=== PATIENT | female | born 1990 | race Caucasian/White ===

== ENCOUNTER 2019-05-30 06:59 | Day surgery (SDC) | payer SELFPAY ==
[2019-05-18 09:03] VITALS: BMI 19.3
--- NOTE | 2019-05-20 09:25 | HP_ITS ---
Intake Vital Signs 05/18/19 Height 5 ft 5 in 05/18/19 Weight: 116 lb 2 oz 05/18/19 Body Mass Index (BMI) 19.3 05/18/19 Blood Pressure 104/66 05/18/19 Blood Pressure Location Rt brachial 05/18/19 Respiratory Rate 16 05/18/19 Pulse Rate 78 05/18/19 Pulse Ox 99 Intake Visit Reasons: ABD PAIN, Z86.010, CHANGE IN BM Chief Complaint: LLQ pain, severe constipation Dogger Required: No Is patient in pain?: Yes (low abd/ LLQ ) Pain scale (1-10): 2 Allergies naproxen [From Aleve] Allergy (Severe, Verified 05/18/19 09:04) throat swelling Medications aspirin 81 mg tablet,delayed release 81 mg PO DAILY 05/18/19 [History Confirmed 05/18/19] ginseng 250 mg capsule 250 mg PO DAILY 05/18/19 [History Confirmed 05/18/19] omega-3 fatty acids 1,000 mg capsule 1,000 mg PO BID cap 05/18/19 [History Confirmed 05/18/19] turmeric 400 mg capsule mg PO PRN cap 05/18/19 [History Confirmed 05/18/19] vitamin E (dl, acetate) 1,000 unit capsule 1,000 unit PO DAILY 05/18/19 [History Confirmed 05/18/19] Is last menstrual period known: No Post menopausal: No Patient : No PFSH Medical History Constipation (Acute) IBS (irritable colon syndrome) (Acute) Personal history of colonic polyps (Acute) Surgical History History of colonoscopy (Acute ~2006) Family History Father Osteoarthritis Hyperlipidemia Social History (Updated 05/20/19 @ 09:25 by Harman Feng MD) Smoking Status: Never smoker alcohol intake: never HPI HPI HPI: LEONOR GUTIERREZ, is a 29 F who presents to the office today for HPI HPI Surgical H&P: Yes HPI: LEONOR GUTIERREZ, is a 29 F who presents to the office today for evaluation for endoscopy. Patient has been experiencing a lot of epigastric abdominal pain and last week and was unable to eat much of anything secondary to this. She has had rectal bleeding over the last 3 to 4 months. Her last colonoscopy was 12 years ago in [place]. At that time she was noted to have a polyp but has not had any further colonoscopies. She has a grandfather who has colon cancer. ROS General General: Yes fatigue; no weight change, appetite, colon cancer, breast cancer or weakness HEENT HEENT: Yes difficulty swallowing; no eye injury, eye surgery, swollen glands or hoarseness Endo Endocrine: No thyroid disease, diabetes mellitus, thyroid cancer, Hair loss, heat intolerance or cold intolerance Cardio Cardiovascular: No murmur, pacemaker, heart disease, atrial fibrillation, high blood pressure, heart attack, heart stent, palpitations, shortness of breat with exertion or chest pain Resp Respiratory: No shortness of breath, No sleep apnea, No cough, No COPD, No asthma, No emphysema, No wheezing Gastro Gastrointestinal: Yes abdominal pain, Yes nausea or vomiting, Yes diarrhea, Yes constipation, Yes blood in stool, No acid reflux, No hemorrhoids, No ulcers, No gallbladder problem, No black,tarry stools Duy Hematologic: Yes blood thinners, No blood disorders, No bleeding, No anemia, No blood clots Neuro Neurologic: No weakness Exam Const General: no acute distress, well developed, well hydrated Orientation: oriented to person, oriented to place, oriented to time [facility] Head: normocephalic, atraumatic Ears: external ears normal Mouth: moist mucous membranes Eyes Sclera: sclerae normal Pupils: normal by confrontation Neck Neck: no lymphadenopathy noted Neck mass: No Thyroid: thyroid normal, symmetrical Chest Chest palpation & inspection: normal inspection of the chest Resp Effort & Inspection: normal respiratory effort Auscultation: clear to auscultation bilaterally Percussion: percussion normal Cardio Rate: regular rate Rhythm: regular rhythm Heart Sounds: no murmurs GI Palpation: soft, no hepatosplenomegaly, no masses, nontender Rectal Exam: other Other: Rectal exam deferred. Extrem General: normal to inspection, no clubbing, cyanosis or edema Assessment & Plan Problems 1. Epigastric abdominal pain R10.13 2. Rectal hemorrhage K62.5 Plan I have discussed the above with the patient. I have offered the patient colonoscopy as well as an esophagogastroduodenoscopy. For evaluation. I have explained the risks/benefits of the procedure and described the procedure. I have discussed the risks with the patient, including but not limited to: infection, bleeding, perforation of the GI tract requiring emergency surgery, inability to complete the procedure, injury to any internal organs, complications of anesthesia, etc. - the patient understands and agrees to proceed. I have answered all the patient's questions to the patient's satisfaction and the patient has no further questions. The patient has been given instructions for the colon cleansing preparation. We will more likely need to do random colon biopsies on her as well. Orders Orders: Colonoscopy 05/18/19 EGD 05/18/19 R10.9 Coding Level of Care Code Off vis,new,level 3 Diagnoses Epigastric abdominal pain R10.13 Rectal hemorrhage K62.5 05/20/19 0925 <Electronically signed by Harman menard MD> Date _ Harman Feng MD I have re-examined the patient. There are no clinical changes since date of exam.
[2019-05-30] VITALS (8 sets, daily range): BP systolic 88–124; BP diastolic 62–92; PULSE 58–100; RESP 16–18; TEMP 36.4–36.9; O2SAT 96–100; BMI 19.2
--- NOTE | 2019-05-30 | IMM_PTH ---
PATIENT: LEONOR GUTIERREZ LOC: EN U#:[id number] AGE/SX: 29/F ROOM: RE05/30/[address]: Dr. Harman Feng MD : 1990 BED: DIS: 05/30/2019 SPEC #: [id number] RECD: 06/01/19 07:19 STATUS: YAMILE CHANO #: [id number] MUSA: 05/30/19 00:[address]: Harman Feng DEPT: IMMUNOHISTOCHEMISTRY RECD BY: Tania Ybarra ENTERED: 06/01/19 07:20 SP TYPE: IMMUNO OTHR DR: No Primary Care Phys Tissues: B - Stomach, NOS Procedures: H Pylori (initial) PHYSICIAN & INSTITUTION [place] [address] SPECIMEN INFORMATION: Tissue Source: B - Antrum biopsy Clinical Info: Epigastric abdomen pain, rectal hemorrhage Specimen Number: [id number] CPT code: 75747 METHODOLOGY: Deparaffinized sections of prefer/formalin-fixed tissue or PAP/DQ stained slides are incubated with monoclonal/polyclonal antibodies/oligonucleotide probes. Localization is made via biotin free immunoperoxidase method. Appropriate controls are performed and reacted as expected. Results on target cell population are indicated in the following table: RESULTS: ANTIBODY / CLONE RESULT Block B H Pylori (polyclonal) negative These tests were developed and their performance characteristics determined by [facility]. They may not have been cleared or approved by the U.[place]. Food and Drug Administration. The FDA has determined that such clearance or approval is not necessary. INTERPRETATION: B. Antrum biopsy: Negative for Helicobacter pylori organisms. AM:meliza 06/04/19
--- NOTE | 2019-05-30 | GASB_PTH ---
PATIENT: LEONOR GUTIERREZ LOC: EN U#:[id number] AGE/SX: 29/F ROOM: RE05/30/[address]: Dr. Harman Feng MD : 1990 BED: DIS: 05/30/2019 SPEC #: [id number] RECD: 05/30/19 09:57 STATUS: YAMILE CHANO #: [id number] MUSA: 05/30/19 00:[address]: Harman Feng DEPT: SURGICAL PATHOLOGY RECD BY: Shadi Leong ENTERED: 05/30/19 14:05 SP TYPE: Gastric Bx OTHR DR: No Primary Care Phys Tissues: A - Gastric mucous membrane B - Gastric mucous membrane C - Ileum, NOS D - COLON BIOPSY Procedures: Surgery Specimen Level IV HEADER OPERATION: Colonoscopy, EGD ([facility] [place]) PRE-OP DIAGNOSIS: Epigastric abdomen pain; rectal hemorrhage TISSUE SUBMITTED: A - Biopsies small bowel, B - Antrum, H. pylori and path, C - Terminal ileum biopsy, D - Random colon biopsy MICROSCOPIC DIAGNOSIS A. Small bowel, biopsy: Mild nonspecific chronic inflammation. See comment. B. Gastric antrum, biopsy: Minimal chronic inflammation. See comment. C. Terminal ileum, biopsy: No pathologic diagnosis. D. Colon, random biopsy: Melanosis coli. AM:meliza 06/01/19 COMMENT A. There is no flattening of villi present. Clinical correlation is suggested. B. The results of immunohistochemistry for Helicobacter pylori will be reported separately ([id number]). MICROSCOPIC DESCRIPTION Slides are reviewed. GROSS DESCRIPTION A - Received in fixative is one container labeled with the patient's name and designated small bowel biopsy. The specimen consists of one irregular fragment of light hardin soft tissue that measures 0.5 x 0.2 x 0.1 cm. The specimen is totally submitted in one cassette. B - Received in fixative is one container labeled with the patient's name and designated antrum, H. pylori and path. The specimen consists of one irregular fragment of light hardin soft tissue that measures 0.3 x 0.3 x 0.1 cm. The specimen is totally submitted in one cassette. C - Received in fixative is one container labeled with the patient's name and designated terminal ileum biopsy. The specimen consists of one irregular fragment of light hardin soft tissue that measures 0.4 x 0.3 x 0.1 cm. The specimen is totally submitted in one cassette. D - Received in fixative is one container labeled with the patient's name and designated random colon biopsy. The specimen consists of multiple irregular fragments of light hardin soft tissue that in aggregate measure 1.5 x 0.7 x 0.1 cm. The specimen is totally submitted in one cassette. / SJ:rg 05/30/19 TC:3 CPT: 33660 x4
[2019-05-30 07:26] LABS: Internal QC Validated? YES +Cl - CLEAR BKGD; Pregnancy, Urine Negative Negative
--- NOTE | 2019-05-30 10:46 | OP.ENDO_ITS ---
05/30/2019 No Primary Care Physician Re : Colonoscopy procedure for Keila Wing Dear Care Physician This procedure was performed on Thursday, May 30, 2019. My impressions and recommendations are as follows: Impressions : - The entire examined colon is normal. Biopsied. - The examined portion of the ileum was normal. Biopsied. - The examination was otherwise normal. Recommendations : - Discharge patient to home. - Resume previous diet. - Continue present medications. - Await pathology results. - Repeat colonoscopy in 10 years for screening purposes. My findings are described in the full procedure note, which is enclosed. If I can be of further assistance, please feel free to contact me at Doctor phone number(s): , Fax: [phone], Work: . Sincerely, MD Harman Queen MD 05/30/2019 8:23:40 AM This report has been signed electronically.
--- NOTE | 2019-05-30 10:46 | OP.ENDO_ITS ---
05/30/2019 No Primary Care Physician Re : Upper GI endoscopy procedure for Keila Wing Dear Care Physician This procedure was performed on Thursday, May 30, 2019. My impressions and recommendations are as follows: Impressions : - Benign-appearing esophageal stenosis. No specimens collected. - Gastritis. Biopsied. - Normal examined duodenum. Biopsied. Recommendations : - Await pathology results. - Repeat upper endoscopy (date not yet determined) for surveillance. - Return to my office in 1 week. - Continue present medications. My findings are described in the full procedure note, which is enclosed. If I can be of further assistance, please feel free to contact me at Doctor phone number(s): , Fax: [phone], Work: . Sincerely, MD Harman Queen MD 05/30/2019 8:17:32 AM This report has been signed electronically.
== END 2019-05-30 09:53 | disposition home or self-care (01) ==
LOC: EN 07:03 → AC 07:08
PROVIDERS: Anesthesiology; Referring Provider Surgery; Visit Provider Surgery
PROC: 0DJD8ZZ Inspection of Lower Intestinal Tract, Via Natural or Artificial Opening Endoscopic (ICD-10-PCS; CPT 45378; principal; 2019-05-30 08:05)
DX: K29.50 Unspecified chronic gastritis without bleeding (principal); K63.89 Other specified diseases of intestine; K52.9 Noninfective gastroenteritis and colitis, unspecified; K64.8 Other hemorrhoids; K22.2 Esophageal obstruction; Z80.0 Family history of malignant neoplasm of digestive organs; Z79.82 Long term (current) use of aspirin
CPT/HCPCS: 43239; 45380; 81025; 88305; 88342; J7120; J2405

== ENCOUNTER → 2020-05-21 | Outpatient (CLI) | payer SELFPAY ==
[2019-05-30 07:24] VITALS: BMI 19.2
--- NOTE | 2020-05-21 13:10 | US_ITS ---
STUDY: SECOND AND THIRD TRIMESTER OBSTETRICAL ULTRASOUND-Limited REASON FOR EXAM: Female, 30 years old spotting LMP: 09/10/2019 TECHNIQUE: Transabdominal and Transvaginal TECHNICAL QUALITY: Adequate. PRIOR ULTRASOUND: None. FINDINGS: There is a single intrauterine fetus. The fetus is in a cephalic presentation. There is demonstrated cardiac activity with a heart rate of 145 bpm. There is a normal amniotic fluid volume. The largest amniotic fluid pocket measures 3.7 cm. The amniotic fluid index (GABRIELLE) is 8.2 cm. The placenta is anterior in location and is not low lying. There are Grade 2 placental changes. The cervix measures 2.5 cm in length. The bilateral adnexal regions are normal. BIOMETRY: BPD: 8.6 cm: 34 weeks, 6 days HC: 31.6 cm: 35 weeks, 2 days AC: 33.5 cm: 37 weeks, 2 days FL: 6.9 cm: 35 weeks, 1 days age by current US: 35 weeks, 1 days. SOPHIE by current US: 06/24/2020. Estimated weight: 2918 grams, +/- 432 grams, 51 %. Age by LMP: 36 weeks, 2 days. SOPHIE by LMP: 06/16/2020. A complete anatomic evaluation was not performed, there is evidence of fullness of both renal pelves but measurement is within normal range. US/OB Limited With Biometrics IMPRESSION: Single live intrauterine at 35 weeks, 1 day by current ultrasound with SOPHIE of 06/24/2020. Heart rate at 145 bpm. No suspicious sonographic findings. Electronically Signed: Wilman Hernandez MD at 14:36 EDT , Service support ,
== END | disposition home or self-care (01) ==
DX: N92.0 Excessive and frequent menstruation with regular cycle (principal)
CPT/HCPCS: 76816; 76817

== ENCOUNTER → 2025-03-08 | Outpatient (CLI) | payer SELFPAY ==
--- NOTE | 2025-03-08 13:44 | VDLE_ITS ---
Reason For Study Reason For Study: Right leg pain, r/o dvt RIGHT GSV is normal. CFV is compressible, spontaneous, phasic, competent and demonstrates normal augmentation. FV is compressible, spontaneous, phasic, competent and demonstrates normal augmentation. POP V is compressible, spontaneous, phasic, competent and demonstrates normal augmentation. T/P Trunk is compressible. PTV is compressible. RT PerV is compressible. Procedure This is a venous duplex using B-mode, color flow and spectral Doppler. Exam performed in department. A preliminary report was called and/or faxed to Dr. Joseph. VL/Venous Duplex US, Unilateral Interpretation Summary Deep veins of the right lower extremity are patent and compressible segmentally . There is no evidence of right lower extremity deep vein thrombosis. Valvular competence appears intact within the p roximal deep venous system on the right . The right great saphenous vein appears patent and compressible segmentally. Ordering Physician: Melanie Joseph Referring Physician: Gina Mendez Performed By: Sunita Borden RVT
== END | disposition home or self-care (01) ==
LOC: CVS 13:43
PROVIDERS: PCP Nurse Practitioner; Referring Provider Obstetrics & Gynecology; Visit Provider Obstetrics & Gynecology
DX: O22.03 Varicose veins of lower extremity in pregnancy, third trimester (principal); I83.891 Varicose veins of right lower extremity with other complications; Z3A.31 31 weeks gestation of pregnancy; O30.003 Twin pregnancy, unspecified number of placenta and unspecified number of amniotic sacs, third trimester
CPT/HCPCS: 93971

== ENCOUNTER 2025-04-05 05:13 | Inpatient (IN) | payer SELFPAY ==
[2025-04-05] VITALS (57 sets, daily range): BP systolic 91–137; BP diastolic 49–74; PULSE 78–116; RESP 6–18; TEMP 36.3–36.9; O2SAT 79–100; BMI 32.5
[2025-04-05 04:49] LABS: Absolute Lymphocyte Count 1.74 X10^3/uL (0.83-4.51); Absolute Neutrophil Count 19.3 X10^3/uL (2.0-7.7); Basophil# 0.09 X10^3/uL; Basophil% 0.4 % (0-1); Eosinophil# 0.01 X10^3/uL; Hematocrit 31.7 % (37-47); Hemoglobin 10.7 g/dL (12.0-15.0); Lymphocyte # 1.74 X10^3/ul (0.83-4.51); Lymphocyte % 7.9 % (19-41); Mean Corp Hgb Conc 33.8 g/dL (32-36); Mean Corpuscular Volume 88.8 fL (81-99); Mean Platelet Vol. 10.6 fl (6.2-12.0); Monocyte# 0.75 X10^3/uL; Monocyte% 3.4 % (0-10); NRBC Flagged by Analyzer 0 % (0-5); Neutrophil # 19.34 X10^3/uL (2.7-7.7); Neutrophil % 87.4 % (47-70); Platelet Count 166 K/mm3 (150-450); RBC Distribution Width CV 14.7 % (11.6-14.6); RBC Distribution Width SD 47.2 fl (35.1-43.9); Red Blood Count 3.57 M/mm3 (4.2-5.4); White Blood Count 22.1 K/mm3 (4.4-11.0)
[2025-04-05] MEDS: Lactated Ringers 1,000 ML 200 ML IV (05:34)
[2025-04-05] MEDS: Penicillin G Pot 5,000,000 UNITS in 0.9% Normal Saline (100mL MB+) 100 ML 150 UNITS IV (05:34)
[2025-04-05 05:48] LABS: Bedside Glucose 129 mg/dL (74-106)
[2025-04-05 06:45] LABS: Group B Strep DNA By PCR POSITIVE (Negative)
--- NOTE | 2025-04-05 06:57 | PCM.HP.OB ---
HPI - General General Date of Admission: 04/05/25 Date of Service: 04/05/25 Chief Complaint: labor HPI Narrative LEONOR GUTIERREZ, is a 35 F who presents with contractions at 3 cm dilated. Uncomfortable. No vb, lof. PFSH PFSH Medical History (Updated 04/05/25 @ 07:[address] Clau Amos, DO) depression Gestational diabetes Personal history of colonic polyps Constipation IBS (irritable colon syndrome) Home Medications ?Medication ?Instructions ?Recorded ?Last Taken ?Type aspirin 81 mg tablet,delayed 81 mg PO DAILY 05/18/19 04/04/25 History release (Adult Aspirin Regimen) ginseng 250 mg capsule 250 mg PO DAILY 05/18/19 05/29/19 History omega-3 fatty acids 1,000 mg 1,000 mg PO BID 05/18/19 04/04/25 History capsule (Fish Oil Concentrate) vitamin E (dl, acetate) 450 mg 1,000 unit PO DAILY 05/18/19 05/29/19 History (1,000 unit) capsule vits no.60-ferrous tab 04/05/25 Unknown History fumarate 27 mg iron-folic acid 1 mg tablet Allergy/AdvReac Type Severity Reaction Status Date / Time naproxen (From Aleve) Allergy Severe throat Verified 04/05/25 04:08 swelling latex Allergy Mild Rash Verified 04/05/25 04:08 Family History Father Osteoarthritis Hyperlipidemia Surgical History History of colonoscopy (~2006) Social History (Updated 05/20/19 @ 09:[address] Harman Feng MD) Smoking Status: Never smoker alcohol intake: never History Elective abortions Hx Para 2 Spontaneous abortions Hx # Term Pregnancies Ectopic pregnancies Hx # Pregnancies Multiple births # of living children NST FHR Rate Baby A FHR Category:: Category I Uterine Activity:: ctx q 2-3 min FHR Rate Baby B FHR Category:: Category I Uterine Activity:: ctx q 2-3 min Vital Signs Vital Signs Vital Signs: 04/05/25 04:32 04/05/25 04:32 04/05/25 05:03 Temperature Temperature Source Temporal Pulse Rate 104 H Respiratory Rate Blood Pressure 135/74 H BP Systolic 135 BP Diastolic 74 Pulse Ox 04/05/25 05:03 04/05/25 05:03 04/05/25 06:17 Temperature 98.5 F Temperature Source Pulse Rate 116 H Respiratory Rate 18 Blood Pressure BP Systolic BP Diastolic Pulse Ox 04/05/25 06:17 04/05/25 06:45 04/05/25 06:45 Temperature Temperature Source Pulse Rate 101 H Respiratory Rate Blood Pressure BP Systolic BP Diastolic Pulse Ox 98 97 Weight Weight: 195 lb 4 oz Body Mass Index (BMI) 32.5 Physical Exam Const alert and no apparent distress Constitutional Narrative: Uncomfortable with ctx's Labs Labs Labs: Blood Type Pending Antibody Screen Pending Hct 31.7 % (37-47) L Hgb 10.7 g/dL (12.0-15.0) L Obstetrics Ultrasound Group B Strep DNA POSITIVE (Negative) H Assessment & Plan (1) Dichorionic diamniotic twin : PLAN: Patient made cervical change from 3 to 4 cm. Admit for labor. PCN for GBS unknown. Bedside TAUS performed with baby A vtx and baby B vtx. Recommended epidural and patient considering. Discussed if a section is indicated it would have to be under general anesthesia. All questions answered. Pelvis adequate and anticipate vaginal delivery. GDM protocol. (2) Uterine contractions: (3) Positive GBS test: (4) Gestational diabetes: (5) 35 weeks gestation of :
[2025-04-05 07:10] LABS: Bedside Glucose 118 mg/dL (74-106)
[2025-04-05 07:54] LABS: Syphilis Antibodies Nonreactive (Nonreactive)
[2025-04-05 07:57] LABS: Bedside Glucose 108 mg/dL (74-106)
[2025-04-05 08:25] LABS: Probe Check PASS
--- NOTE | 2025-04-05 08:56 | PN.OBGYN_ITS ---
Subjective Subjective Coping well after epidural placement, not dosed. Father of baby and rotary saw operator at bedside. Objective Data Objective Data Vital Signs: Vital Signs Temp Pulse Resp BP Pulse Ox 98.5 F 101 H 18 100/51 L 97 04/05/25 05:03 04/05/25 08:52 04/05/25 05:03 04/05/25 08:52 04/05/25 08:35 Weight: 195 lb 4 oz Body Mass Index (BMI) 32.5 Lab / Micro Data 04/05/25 04:20 Labs: Laboratory Results - last 24 hr 04/05/25 04:20: WBC 22.1 H, RBC 3.57 L, Hgb 10.7 L, Hct 31.7 L, MCV 88.8, MCH 30.0, MCHC 33.8, RDW Std Deviation 47.2 H, RDW Coeff of Fan 14.7 H, Plt Count 166, MPV 10.6, Immature Gran % (Auto) 0.900, Neut % (Auto) 87.4 H, Lymph % (Auto) 7.9 L, Spalding % (Auto) 3.4, Eos % (Auto) 0.0, Baso % (Auto) 0.4, Absolute Neuts (auto) 19.3 H, Absolute Lymphs (auto) 1.74, Nucleated RBC % 0, Syphilis Total Ab Nonreactive, Blood Type A POSITIVE, Antibody Screen NEGATIVE 04/05/25 05:02: Group B Strep DNA POSITIVE H, Specimen Comment Not Reportable 04/05/25 05:27: POC Glucose 129 H 04/05/25 06:50: POC Glucose 118 H 04/05/25 07:36: POC Glucose 108 H Physical Exam Manual OB Exam: estimated gestational size, presentation cephalic, dilated 6, effaced 70, station -1 and other Twin gestation, vertex palpated on exam. AROM large amount of clear fluid NST FHR Rate Baby A Baseline: 145 Variability:: Moderate Accelerations:: 15 x 15 Decelerations:: Variable FHR Category:: Category II Uterine Activity:: Every 2 minutes, strong FHR Rate Baby B Baseline: 130 Variability:: Moderate Accelerations:: 15 x 15 Decelerations:: Variable FHR Category:: Category II Assessment & Plan (1) 35 weeks gestation of : (2) Dichorionic diamniotic twin : PLAN: Plan 1.AROM clear fluid 2.Category 2 FHT 3.Epidural placed but not dosed 4.Vitals stable 5. collaborative physician and notified of patient above assessment, status and plan of care. Preparing for delivery in the OR when patient is completed cervical dilation
[2025-04-05] MEDS: Oxytocin 10 UNITS/ML Vial IM (09:40)
--- NOTE | 2025-04-05 09:47 | EX.PCM.OBVAG ---
Assessment & Plan (1) Twin delivered vaginally: (2) Lactating mother: Maternal Data Information Gestational age: 35w5d Vaginal Delivery Maternal Presentation Maternal Presentation: Active Labor Vaginal Delivery Information Procedure Performed: Spontaneous Vaginal Delivery (Di/DI Twin gestation) Date of Procedure: 04/05/25 Pre-Procedure Diagnosis: Active Labor Post-Procedure Diagnosis: Vaginal delivery of Di/Di twin gestation Type of anesthesia: Epidural (placed but not dosed) Estimated Blood Loss: 100ml Time of Delivery: 09:21 Findings Description of procedure: Progressed to complete with urge to push. Epidural in place but not dosed, unmedicated. Baby A vertex, of viable male over intact perineum. APGARS 8,9 born at 0921. head delivered with body immediately forthcoming. Placed on maternal abdomen, strong cry. Mouth and nares wiped for secretions. Cord doubly clamped and cut after delayed cord clamping. Baby B verified vertex presentation and AROM for clear fluid. of viable female at 0937. APGARS 8,8. Infant head delivered with body immediately forthcoming, CAN and arm x1, delivered through. Placed on maternal abdomen, strong cry. Mouth and nares wiped for secretions. Cord doubly clamped and cut after delayed cord clamping.Perineum inspected and revealed intact. Fundus firm and hemostasis achieved. EBL 100ml. Mom and baby stable, planning to breastfeed. Family bonding well. present on unit fordelivery. Presentation: Vertex Amniotic Membrane Rupture Type: Artificial Amniotic Fluid Description: Clear Placental Delivery Description: Spontaneous Placenta Disposition: [facility] Specimen collected: No Cord Vessel Description: 3 Vessels Cord Entanglement: None A Gender: Male (1 minute): 8 (5 minute): 9 Delayed Cord Clamping: Yes Director Of Medical Review parking lot attendant and cashier: No Post Vaginal Deli Medications given after delivery: IV Pitocin and IM Pitocin Episiotomy Description: None Laceration: None Complication Complications: No Baby B Information Amniotic Membrane Rupture Type: Artificial Presentation: Vertex Operative Information Mode of Delivery: Vaginal Cord Vessel Description: 3 Vessels Cord Entanglement: Around neck x 1, loose Nuchal Cord Compression: Without compression Infant B gender: Female (1 minute): 8 (5 minute): 8 Delayed Cord Clamping: Yes
[2025-04-05] MEDS: Acetaminophen 500 MG Tablet 1000 MG PO ×2 (10:09→20:13)
[2025-04-05] MEDS: Oxytocin 15 Units/NS 250ml 15 UNITS/250 ML IV.SOLN 83 UNITS IV (10:44)
[2025-04-05] MEDS: Ibuprofen 600 MG Tablet PO ×2 (10:49→17:47)
[2025-04-06] VITALS (7 sets, daily range): BP systolic 82–108; BP diastolic 53–63; PULSE 77–95; RESP 14–16; TEMP 36.2–36.8; O2SAT 98–100
[2025-04-06] MEDS: Ibuprofen 600 MG Tablet PO ×3 (00:04→15:19)
[2025-04-06] MEDS: Acetaminophen 500 MG Tablet 1000 MG PO (03:01)
[2025-04-06 05:29] LABS: Absolute Lymphocyte Count 2.35 X10^3/uL (0.83-4.51); Absolute Neutrophil Count 12.2 X10^3/uL (2.0-7.7); Basophil# 0.06 X10^3/uL; Basophil% 0.4 % (0-1); Eosinophil# 0.19 X10^3/uL; Eosinophils% 1.2 % (0-5); Hematocrit 31.7 % (37-47); Hemoglobin 10.5 g/dL (12.0-15.0); Lymphocyte # 2.35 X10^3/ul (0.83-4.51); Lymphocyte % 14.5 % (19-41); Mean Corp Hgb Conc 33.1 g/dL (32-36); Mean Corpuscular Hgb 29.6 pg (27.0-32.0); Mean Corpuscular Volume 89.3 fL (81-99); Mean Platelet Vol. 10.5 fl (6.2-12.0); Monocyte# 1.25 X10^3/uL; Monocyte% 7.7 % (0-10); NRBC Flagged by Analyzer 0 % (0-5); Neutrophil % 75.2 % (47-70); Platelet Count 207 K/mm3 (150-450); RBC Distribution Width CV 14.7 % (11.6-14.6); RBC Distribution Width SD 48.4 fl (35.1-43.9); Red Blood Count 3.55 M/mm3 (4.2-5.4); White Blood Count 16.2 K/mm3 (4.4-11.0)
[2025-04-06 05:58] LABS: Bedside Glucose 83 mg/dL (74-106)
--- NOTE | 2025-04-06 08:01 | PCM.DC.SUM ---
Providers Date of Admission: 04/05/25 Primary Care Physician: KENYETTA UlrichC Reason For Visit: VAGINAL DELIVERY TWINS Diagnosis Discharge Diagnosis (1) Twin delivered vaginally: Status: Acute Code(s): O30.009 - Twin , unspecified number of placenta and unspecified number of amniotic sacs, unspecified trimester (2) Lactating mother: Status: Acute Code(s): Z39.1 - Encounter for care and examination of lactating mother Medications at Discharge Home Medications ginseng 250 mg capsule 250 mg PO DAILY 05/18/19 omega-3 fatty acids 1,000 mg capsule (Fish Oil Concentrate) 1,000 mg PO BID 05/18/19 vitamin E (dl, acetate) 450 mg (1,000 unit) capsule 1,000 unit PO DAILY 05/18/19 vits no.60-ferrous fumarate 27 mg iron-folic acid 1 mg tablet tab 04/05/25 acetaminophen 500 mg tablet 1,000 mg (2 x 500 mg) PO Q6H PRN PRN Pain 1-10 Or Fever #0 tabs 04/06/25 ibuprofen 600 mg tablet 600 mg PO Q6H PRN PRN Pain Score 1-10 #0 tabs 04/06/25 Hospital Course Operations None Procedures None Summary of Care Provided Minutes Spent on Discharge: 15 Hospital Course: Patient had vaginal delivery. Hospital course was uneventful. Physical Exam Narrative Patient seen at bedside. Denies pain. Ambulating and voiding without difficulty. Lochia decreased. Desires discharge home today. Const alert and oriented x3 General Appearance: Negative for in distress HEENT normocephalic Eyes General Eye: normal appearance of both eyes Neck General: normal visual inspection Chest Chest: symmetrical chest wall rise Resp normal respiratory effort and normal air movement Effort and Inspection: symmetric chest movement; Negative for tachypneic Auscultation: clear to auscultation bilaterally Cardio regular rate and regular rhythm Peripheral Pulses: pulses 2+ throughout GI normal to inspection, nondistended, normoactive bowel sounds Narrative: Ice to perineum OB / External & Speculum: vaginal bleeding and other Lochia decreasing Uterus Palpation: uterus fundus firm (Below U) Extremity normal to inspection, full ROM and normal capillary refill Skin no rashes or lesions noted Neuro oriented x3, CN's II-XII intact bilaterally and gait normal Psych mental status grossly normal, thought process normal and activity/motor behavior normal Weight / BMI Weight Weight: 195 lb 4 oz Body Mass Index (BMI) 32.5 ABG / Lab / Microbiology Data 04/06/25 05:00 Laboratory: Laboratory Results - last 24 hr 04/05/25 05:02: Group B Strep DNA POSITIVE H, Specimen Comment Not Reportable 04/06/25 05:00: WBC 16.2 H, RBC 3.55 L, Hgb 10.5 L, Hct 31.7 L, MCV 89.3, MCH 29.6, MCHC 33.1, RDW Std Deviation 48.4 H, RDW Coeff of Fan 14.7 H, Plt Count 207, MPV 10.5, Immature Gran % (Auto) 1.000 H, Neut % (Auto) 75.2 H, Lymph % (Auto) 14.5 L, Davison % (Auto) 7.7, Eos % (Auto) 1.2, Baso % (Auto) 0.4, Absolute Neuts (auto) 12.2 H, Absolute Lymphs (auto) 2.35, Nucleated RBC % 0 04/06/25 05:01: POC Glucose 83 D/C Instructions Discharge Diet: No restrictions Discharge Activity: Return to Normal Activity, No Restrictions, May Drive, May Shower and May Take a Tub Bath (Warm water only. No bath salts, soaps, bubbles) May resume sexual activity in: 6-8 weeks Weight Bearing Status: Weight bearing as tolerated Call your doctor if you observe: Fever of 101 or Higher, Inability to urinate, Using more than 1 pad per hour, Shortness of breath, Dizziness, Chest pain, Calf discomfort and Uncontrolled pain DC O2, CPAP, BIPAP Needs Home O2 Discharge instructions: No Please Follow Up With: [facility] When: 2 weeks in office or virtual Meaningful Use Info Meaningful Use Meaningful Use Diagnoses (Choose all that apply): None applicable Ischemic Stroke Statin Dosing Therapy Reference: STATIN DOSE THERAPY REFERENCE: * Patients > 75 years receive moderate or high dose statin therapy. * Patients 75 years or YOUNGER should receive HIGH intensity statin dose unless contraindicated. You will be required to document reason for non-treatment if statin daily dose does not meet guidelines. HIGH DOSE STATIN THERAPY DAILY Atorvastatin > than or = to 40 mg Rosuvastatin > than or = to 20 mg Amlodipine + Atorvastatin > than or = to 2.5/40 mg Ezetimibe + Simvastatin 10/80 mg Simvastatin 80mg Discharge Plan Admission Admit Date/Time: 04/05/25 05:13 Primary Reason for Your Visit: Labor and Delivery Attending Provider: Lucita Egan Primary Care Provider: Gina Mendez NP Discharge Orders/Prescriptions Prescriptions: New acetaminophen 500 mg Tablet 1,000 mg PO Q6H PRN PRN (Reason: Pain 1-10 Or Fever) Qty: 0 0RF ibuprofen 600 mg Tablet 600 mg PO Q6H PRN PRN (Reason: Pain Score 1-10) Qty: 0 0RF Continued omega-3 fatty acids [Fish Oil Concentrate] 1,000 mg capsule 1,000 mg PO BID vitamin E (dl, acetate) 1,000 unit capsule 1,000 unit PO DAILY ginseng 250 mg capsule 250 mg PO DAILY vit 60-iron fum-folic 27 mg iron- 1 mg tablet Discontinued aspirin [Adult Aspirin Regimen] 81 mg tablet,delayed release (DR/EC) 81 mg PO DAILY Referrals / Follow Up: Farideh Adame CNM [Med Staff - Adv Practice Prof] - Gina Mendez NP, SHAPER MACHINE HAND-C [Primary Care Provider] - Disposition Disposition (needs filled in before D/C Order can be placed): Home, Self Care
--- NOTE | 2025-04-06 14:35 | CASEMGMT ---
Social Work Assessment Labor and Delivery Unit Patient Address: [address] [place] [place] [address] Phone number: [phone] Date of Referral: 04/05/25 Time of Referral: 19:36 Referred By: Lucita Egan Date of Intervention: 04/06/25 Time of Intervention: 14:36 Reason for Referral: Mental Health/History of PPD History obtained from: Medical records, mother of babies (MOB) and MOB?s [id number] (ABDULAZIZ)/construction coordinator, Mariela. MOB provided consent for social work visit with her ABDULAZIZ present. Household composition: MOB, FOB, their 4-year-old son Laron, 2-year- old daughter Sharon, son Hortencia (baby A) and daughter Verna, (baby B) born on 04/05/25. Patient's parent/guardian status: MOB and FOB have been for 7 years. MOB reported she and the FOB did not date before marriage. MOB described a positive relationship with the FOB and denied any concerns of domestic violence. Medical History:? 6, Para, now 3 due to of multiples.? CHINO has had 3 SAB?s. MOB received PNC through her construction coordinator beginning at 12 weeks and transitioned to PNC through [facility] beginning at 21 weeks. Visits were reported to be routine. Baby A: Apgars: 8 and 9. Weight: 5lbs, 14 oz. ?Baby B: Apgars: 8 and 8, Weight: 5lbs and 15oz. Supervisor Transcribing Operators: Eleazar Fritz Educational Status: MOB denied any concerns with reading or writing with either herself or the FOB and reported they both completed either the 7th or 8th grade. Financial Status: MOB reported the household income is sufficient to meet the needs of her family at this time. MOB is currently a [id number] mom (SAHM) and the FOB farms full-time. ? Infant Supplies: CHINO reported she has all the supplies she needs for newborns at this time including but not limited to: Car seat, pack-n-play, crib, diapers, bottles, breast pump and clothing. Childcare/Caregiver(s):? CHINO will be the primary caregiver as a SAHM and has a large supports system who will also be helping as needed. Transportation: MOB denied any transportation issues at this time. Programs/Agencies Involved: Denied. Children Services/Legal Issues:? Denied. Behavioral Health Issues:?? 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 ? ?MOB ?stated it was debilitating at times and that the depression came and went in stages. ?MOB reported her health wasn?t good at that time as she was suffering with Lyme disease and wasn?t feeling good. ?MOB reported she?s in better health now and has also been pro-active and has been taking D3, fish oil and Omegas.?Substance Use History:?? MOB denied any history of drug or alcohol abuse with either herself or with the FOB.? Family History:? Denied. ??Drug Screens:? None obtained at the time of this admission.? rack room worker administered the Dennis Depression Scale (EPDS). MOB?s score was 6. rack room worker provided verbal education which MOB verbalized she understood. Family/Social Stressors: ?MOB denied any current family or social stressors. Support Systems: Ample.? MOB identified her biggest support as the FOB, her ABDULAZIZ, niece, 2 cousins and in-laws. MOB reported her family lives in [place]. MOB reported the FOB has a very large family and stated there are a lot of people who are wanting to help. Depression/Shaken Baby/Safe Sleeping: rack room worker provided verbal and written education on PPD, Safe Sleeping and Shaken Baby.? Quality Tester educated the MOB about increased risk of PPD. MOB ?verbalized an understanding.??? ASSESSMENT:?? MOB provided consent to social work visit and also provided consent to her ABDULAZIZ being present during the assessment. MOB and ABDULAZIZ were verbally engaged and cooperative. rack room worker observed positive interaction between the MOB and ABDULAZIZ as well as between the MOB and ABDULAZIZ towards newborns.? MOB nursed newborns during the visit, was very attentive, the ABDULAZIZ would assist with holding, changing diapers, helping newborns latch and get undressed to stay awake for nursing. MOB and ABDULAZIZ were very attentive, were tracking feeding times, and was very nurturing towards newborns. MOB reported feeling safe, denied any previous or current domestic violence, drug or alcohol abuse or unmanaged mental health issues with either herself of the FOB. Safe Plan of Care for infants related to substance use: N/A; not needed.? PLAN: Newborns to be discharged home when ready.? rack room worker also provided written information on depression, depression resources and Help Me Grow as additional resources offered by criminal justice social worker which MOB accepted. No other services requested or indicated. Melanie Villarreal, AUTO PORTER, COMPUTER SYSTEMS MANAGER
== END 2025-04-06 20:31 | disposition home or self-care (01) | DRG 806 ==
LOC: WPOUT 05:20 → WP 05:20
PROVIDERS: Obstetrics & Gynecology; Admitting Provider Advanced Practice Midwife; PCP Nurse Practitioner; Referring Provider Advanced Practice Midwife; Visit Provider Advanced Practice Midwife
DX: O30.043 Twin pregnancy, dichorionic/diamniotic, third trimester (principal); Z37.2 Twins, both liveborn; O98.82 Other maternal infectious and parasitic diseases complicating childbirth; O24.429 Gestational diabetes mellitus in childbirth, unspecified control; O69.81X2 Labor and delivery complicated by cord around neck, without compression, fetus 2; O76 Abnormality in fetal heart rate and rhythm complicating labor and delivery; Z79.82 Long term (current) use of aspirin; B95.1 Streptococcus, group B, as the cause of diseases classified elsewhere; Z3A.35 35 weeks gestation of pregnancy; Z86.59 Personal history of other mental and behavioral disorders
CPT/HCPCS: 59025; 59050; 82962; 85025; 86780; 86850; 86900; 86901; 87653; 99221; G0378